=== PATIENT | male | born 1970 | race Caucasian/White ===

== ENCOUNTER 2018-12-25 20:20 | Emergency (ER) | payer OTHER ==
[~2018-12-25] VITALS: Ht 190.5 cm; Wt 104.3 kg
[2018-12-25] MEDS ORDERED: Lisinopril2.5 MG (20:31)
[2018-12-25] MEDS ORDERED: IBUP600 PO (20:56)
--- NOTE | 2018-12-25 21:08 | NUR ---
Pastoral care visit conducted. Met with the pt while in the ER. Pt was accompanied by two of his friends who both remained at the bedside. Pt was conversant and in distress. He reports that his time is getting short and he wants to be sure that he is "right with God." I listened empathically, provided validating feedback, and pastoral curriculum counselor. Prayer offered at the pt's request and he elevated in mood congruently. I will remain available for prospective support accordingly.
[2018-12-25] MEDS ORDERED: Roxicodone5 MG PO (23:09)
[2018-12-25] MEDS ORDERED: Keflex500 MG PO (23:25)
== END 2018-12-25 23:53 | disposition home or self-care (01) ==
LOC: ER 20:20
DX: S92.424A Nondisplaced fracture of distal phalanx of right great toe, initial encounter for closed fracture (principal); S82.841A Displaced bimalleolar fracture of right lower leg, initial encounter for closed fracture; S90.121A Contusion of right lesser toe(s) without damage to nail, initial encounter; Z88.5 Allergy status to narcotic agent; Z79.899 Other long term (current) drug therapy; V28.4XXA Motorcycle driver injured in noncollision transport accident in traffic accident, initial encounter
CPT/HCPCS: 12036; 29505; 73590; 73610; 73620; 90471; 90714; 96365-59; 99284-25; A9270; J0690; J7030